=== PATIENT | male | born 1990 | race Caucasian/White ===

== ENCOUNTER 2018-02-15 16:50 | Emergency (ER) | payer MEDICAID, OTHER ==
[~2018-02-15] VITALS: Ht 162.6 cm; Wt 59.1 kg
[2018-02-15] MEDS ORDERED: AMOX TR/POT CLAV 875 MG/125 MG TABLET PO ONE (18:15)
[2018-02-15] MEDS ORDERED: POVIDONE-IODINE 10% 15 ML SOLUTION UD TP ONE (18:15)
[2018-02-15] MEDS ORDERED: PERTUSS(ACELL),DIPH,TET VAC/PF 0.5 ML VIAL IM ONE (18:15)
[2018-02-15] MEDS ORDERED: IBUPROFEN 800 MG TABLET PO ONE (18:15)
[2018-02-15 19:09] VITALS: BP 137/64
== END 2018-02-15 19:15 | disposition home or self-care (01) ==
LOC: EMS 16:51
DX: S81.852A Open bite, left lower leg, initial encounter (principal); W54.0XXA Bitten by dog, initial encounter; Y93.89 Activity, other specified; Y92.89 Other specified places as the place of occurrence of the external cause; Y99.8 Other external cause status
CPT/HCPCS: 90471; 90715; 99283

== ENCOUNTER 2018-12-15 08:39 | Emergency (ER) | payer SELFPAY ==
[~2018-12-15] VITALS: Ht 170.2 cm; Wt 75.0 kg
[2018-12-15] MEDS ORDERED: CEPH500 PO (08:52)
[2018-12-15] MEDS ORDERED: OXYC10TA58 PO (08:52)
[2018-12-15] MEDS ORDERED: IBUPROFEN 600 MG TABLET PO ONE (10:45)
[2018-12-15] MEDS ORDERED: SULFAMETHOX/TRIMETH DS 800-160 MG/TABLET PO ONE (10:45)
[2018-12-15] MEDS ORDERED: CEPHALEXIN MONOHYDRATE 500 MG CAPSULE PO ONE (10:45)
[2018-12-15 11:16] VITALS: BP 122/68
== END 2018-12-15 12:00 | disposition home or self-care (01) ==
LOC: EMS 08:40
DX: S61.031D Puncture wound without foreign body of right thumb without damage to nail, subsequent encounter (principal); L08.9 Local infection of the skin and subcutaneous tissue, unspecified; W29.8XXD Contact with other powered hand tools and household machinery, subsequent encounter

== ENCOUNTER 2018-12-20 16:00 | Emergency (ER) | payer MEDICAID ==
[~2018-12-20] VITALS: Ht 167.6 cm; Wt 72.7 kg
[~2018-12-20 16:00] MED LIST: CEPH500 PO; OXYC10TA58 PO
[2018-12-20 20:06] VITALS: BP 126/67
== END 2018-12-20 20:11 | disposition home or self-care (01) ==
LOC: EMS 16:01
DX: S61.011D Laceration without foreign body of right thumb without damage to nail, subsequent encounter (principal); R03.0 Elevated blood-pressure reading, without diagnosis of hypertension; Z79.899 Other long term (current) drug therapy; W23.0XXD Caught, crushed, jammed, or pinched between moving objects, subsequent encounter

== ENCOUNTER 2019-01-04 13:40 | Emergency (ER) | payer MEDICAID, OTHER ==
[~2019-01-04] VITALS: Ht 160 cm; Wt 68.2 kg
[2019-01-04 14:43] VITALS: BP 129/63
== END 2019-01-04 14:53 | disposition home or self-care (01) ==
LOC: EMS 13:40
DX: S60.011A Contusion of right thumb without damage to nail, initial encounter (principal); W22.8XXA Striking against or struck by other objects, initial encounter; Y93.89 Activity, other specified; Y92.62 Dock or shipyard as the place of occurrence of the external cause; Y99.0 Civilian activity done for income or pay

== ENCOUNTER 2021-03-04 08:44 | Emergency (ER) | payer MEDICAID ==
[~2021-03-04] VITALS: Ht 165.1 cm; Wt 68.2 kg
[2021-03-04] MEDS ORDERED: ASPIRIN 81 MG CHEWABLE TABLET PO ONE (09:15)
[2021-03-04 09:45] LABS: BASOPHILS % (AUTO) 0.6 % (0.0-2.0); EOSINOPHILS % (AUTO) 1.2 % (1.0-6.0); HEMATOCRIT 45.6 % (41-53); HEMOGLOBIN 15.6 g/dL (13.5-17.5); LYMPHOCYTES # (AUTO) 2.2 K/uL (1.0-4.8); LYMPHOCYTES % (AUTO) 38.7 % (22.0-44.0); MEAN CORPUSCULAR HEMOGLOBIN 31.2 pg (26.0-34.0); MEAN CORPUSCULAR HGB CONC 34.1 G/dL (31.0-37.0); MEAN CORPUSCULAR VOLUME 92 fL (80-100); MONOCYTES # (AUTO) 0.6 K/uL (0.1-1.0); MONOCYTES % (AUTO) 9.7 % (2.0-9.0); NEUTROPHILS # (AUTO) 2.8 K/uL (1.8-7.7); NEUTROPHILS % (AUTO) 49.8 % (40.0-70.0); PLATELET COUNT (AUTO) 200 K/uL (150-450); RED BLOOD CELL COUNT(AUTO) 4.99 MIL/uL (4.50-5.90); RED CELL DISTRIBUTION WIDTH 13.5 % (11.5-14.5)
[2021-03-04 09:47] LABS: PLATELET MORPHOLOGY COMMENT GIANT PLTS PRESENT
[2021-03-04 09:59] LABS: D-DIMER 0.19 mg/L FEU (0.00-0.50); PROTHROMBIN TIME 11.1 SEC (9.4-11.6)
[2021-03-04 10:06] LABS: ANION GAP 7 mmol/L (8-16); CALCIUM, TOTAL 9.1 mg/dL (8.8-10.5); CARBON DIOXIDE 28 mmol/L (22-29); CHLORIDE 103 mmol/L (98-107); GLOMERULAR FILTR. RATE CALC > 60 mL/min (>60); GLUCOSE,RANDOM 94 mg/dL (70-110); POTASSIUM 4.8 mmol/L (3.5-5.1); SODIUM SERUM 138 mmol/L (136-145); UREA NITROGEN, BLOOD 10 mg/dL (7-18)
[2021-03-04 10:09] LABS: B-TYPE NATRIURETIC PEPTIDE 5 pg/mL (0-100)
[2021-03-04 10:28] LABS: ALANINE AMINOTRANSFERASE 38 U/L (12-78); ALBUMIN 4.2 g/dL (3.4-5.0); ALKALINE PHOSPHATASE 86 U/L (46-116); ASPARTATE AMINOTRANSFERASE 24 U/L (15-37); BILIRUBIN,TOTAL 0.4 mg/dL (0.1-1.0); CREATINE KINASE, TOTAL ONLY 188 U/L (39-308); TOTAL PROTEIN, SERUM 7.3 g/dL (6.4-8.2)
[2021-03-04 11:52] LABS: AMPHET/METH SCREEN,URINE NEGATIVE (NEGATIVE); BARBITURATE SCREEN, URINE NEGATIVE (NEGATIVE); BENZODIAZEPINES SCREEN,URINE NEGATIVE (NEGATIVE); CANNABINOID SCREEN,URINE NEGATIVE (NEGATIVE); COCAINE SCREEN,URINE NEGATIVE (NEGATIVE); METHADONE SCREEN, URINE NEGATIVE (NEGATIVE); OPIATE SCREEN,URINE NEGATIVE (NEGATIVE); PHENCYCLIDINE SCREEN,URINE NEGATIVE (NEGATIVE)
[2021-03-04 13:49] VITALS: BP 139/75
== END 2021-03-04 13:59 | disposition home or self-care (01) ==
LOC: EMS 08:46
DX: R07.9 Chest pain, unspecified (principal); F14.10 Cocaine abuse, uncomplicated; F17.210 Nicotine dependence, cigarettes, uncomplicated; F12.90 Cannabis use, unspecified, uncomplicated
CPT/HCPCS: 71045; 80053; 82550; 83880; 84484; 85025; 85379; 85610; 85730; 93005; 99285; 36415-L1; 36415-TC